=== PATIENT | male | born 1985 | race Caucasian/White ===

== ENCOUNTER 2023-10-06 08:07 | Emergency (ER) | payer MEDICAID, SELFPAY ==
[2023-10-06 08:13] VITALS: BP 123/92; PULSE 81; RESP 18; TEMP 36.4; O2SAT 99; BMI 21.8
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
--- NOTE | 2023-10-06 08:38 | XRR_ITS ---
PROCEDURE INFORMATION: Exam: XR Right Femur Exam date and time: 10/06/2023 8:41 AM Age: 38 years old Clinical indication: Thigh; Right; Patient HX: RT leg pain no trauma TECHNIQUE: Imaging protocol: Radiologic exam of the right femur. Views: 2 views. COMPARISON: No relevant prior studies available. FINDINGS: Bones/joints: No displaced fracture seen of visualized portions femur. Linear vertically oriented sclerosis mid to distal shaft femur may be anatomic. No gross bone destruction seen. No suspicious aggressive appearing periosteal reaction seen. Soft tissues: No metallic foreign body seen. XR/XR femur RT min 2V* [id number] IMPRESSION: No displaced fracture seen of femur. If there remains suspicion for nonvisualized pathology, then MRI suggested.
--- NOTE | 2023-10-06 08:38 | XRR_ITS ---
PROCEDURE INFORMATION: Exam: XR Right Knee Exam date and time: 10/06/2023 8:47 AM Age: 38 years old Clinical indication: Knee; Right; Patient HX: RT leg pain no trauma TECHNIQUE: Imaging protocol: Radiologic exam of the right knee. Views: 3 views. COMPARISON: CR XR femur RT min 2V* [id number] 10/06/2023 8:41 AM FINDINGS: Bones/joints: No displaced fracture nor dislocation seen. Perhaps mild tricompartmental joint space narrowing. Soft tissues: No metallic foreign body seen. Other findings: Limited positioning. Densities project over images which may be superimposed material. XR/XR knee RT 3V* [id number] IMPRESSION: No displaced fracture seen of knee.
--- NOTE | 2023-10-06 08:38 | USCV_ITS ---
Jun August Age: 38 Gender: M : 1985 Exam Date: 10/06/2023 08:53 Ordering Phys: Butch Carson DO Technologist: RADHA Exam Location: [facility] [place] Indication: RLE PAIN HISTORY: Lower extremity pain. PROCEDURES: Venous duplex imaging was performed in only the right lower extremity. The following venous structures were evaluated: common femoral vein, profunda vein, proximal portion of the greater saphenous vein, superficial femoral vein, and the popliteal vein. In addition, the posterior tibial and peroneal trunk were evaluated. Serial compression, augmentation maneuvers, and spectral Doppler flow evaluation were performed. FINDINGS: No evidence of DVT seen in any vessel visualized at this time. CONCLUSIONS No DVT right lower extremity. Dr. Graciela Chiang DO (Electronically Signed) Final Date: 06 October 2023 10:54 S
--- NOTE | 2023-10-06 09:34 | CT_ITS ---
WS: [id number] CT RIGHT KNEE, NONCONTRAST HISTORY: pain unable to ambulate Technique: All CT scans at [facility] use at least one of these dose optimization techniques: automated exposure control; mA and/or kV adjustment per patient size (includes targeted exams where dose is matched to clinical indication); or iterative reconstruction. DLP: 323.91 mGy.cm COMPARISON: Radiograph 10/06/2023 Mild diffuse osteopenia. Joint spaces are well-maintained. Tibial plateau is intact. No fractures are identified. No bone osteolysis. Cortex throughout the knee is predominantly intact. There is very boggs btle area of decreased attenuation involving the lateral femoral condyle measuring 2.0 x 1.1 cm. There is mild diffuse soft tissue edema surrounding the knee and a small joint effusion. IMPRESSION: 1. No acute knee fracture. 2. Mild osteopenia. 3. Focal area of loss of trabecular pattern involving the lateral femoral condyle. This may be focal osteopenia. Marrow edema or early changes of osteomyelitis may appear similar. 4. Small joint effusion and diffuse mild soft tissue edema. Cellulitis and septic joint are not excl uded. MRI RIGHT knee with and without contrast may be of benefit.
--- NOTE | 2023-10-06 09:45 | PC.PHAR ---
PT IS FROM [facility]. MED LIST SHOWS DIVALPROEX 125MG 6 CAPS (750MG) IN AM AND 8 CAPS (100 MG) IN PM-CORRECTED TO 8 CAPS (1000 MG) IN PM.
[2023-10-06 09:53] LABS: Basophils % 0.3 %; Eosinophils % 0.7 %; Hematocrit 37.7 % (37-53); Lymphocytes # 0.8 10^3/uL (0.8-4.8); Lymphocytes % 13.7 %; Mean Corpuscular HGB Conc 33.2 g/dL (30-55); Mean Corpuscular Hemoglobin 30.8 pg (27-33); Mean Corpuscular Volume 92.9 fl (82-101); Mean Platelet Volume 10.6 fL (7.4-10.4); Monocytes # 0.7 10^3/uL (0.2-0.9); Neutrophils # 4.31 10^3/uL (1.8-7.7); Nucleated Red Blood Cells % 0 %; Platelet Count 180 10^3/cmm (157-399); Red Blood Count 4.06 10^6/uL (3.85-5.65); Red Cell Distribution Width 12.7 % (12.1-15.1); White Blood Count 5.91 10^3/uL (3.29-11.43)
[2023-10-06 10:14] LABS: Alanine Aminotransferase 19 U/L (0-41); Albumin Level 3.8 g/dL (3.5-5.2); Alkaline Phosphatase 131 U/L (40-130); Anion Gap 14.9 (5-19); Aspartate Amino Transferase 38 U/L (0-40); Blood Urea Nitrogen 9 mg/dL (6-20); C Reactive Protein 51.6 mg/L (0.0-4.9); Calcium 9.6 mg/dL (8.5-10.5); Carbon Dioxide 29 mmol/L (22-29); Chloride 102 mmol/L (98-107); Globulin 3.1 g/dL (1.3-4.6); Glomerular Filtration Rate 187.1 mL/min (90-130); Glucose 97 mg/dL (65-115); Osmolality Calculated 293 mOsm/kg (285-295); Potassium 3.9 mmol/L (3.5-5.1); Sodium 142 mmol/L (136-145); Total Bilirubin 0.4 mg/dL (0.15-1.2); Total Protein 6.9 g/dL (6.6-8.7)
[2023-10-06 10:19] LABS: Erythrocyte Sedimentation Rate 17 mm/hr (0-10)
--- NOTE | 2023-10-06 11:14 | DCPLANNER ---
Message sent to Ortho for a follow up of LT knee pain- also noted that patient would like to be seen in [place]
== END 2023-10-06 11:24 | disposition home or self-care (01) ==
PROVIDERS: Emergency Provider Family Medicine; PCP Physician Assistant
DX: M79.604 Pain in right leg (principal)
CPT/HCPCS: 29530; 36415; 73552; 73562; 73700; 80053; 85025; 85651; 86140; 93971; 99284